=== PATIENT | female | born 1970 | race Caucasian/White ===

== ENCOUNTER → 2016-11-03 | Outpatient (CLI) | payer OTHER ==
--- NOTE | 2016-11-03 13:49 | CR ---
EXAMINATION: Two-view chest (PA and Lateral views). HISTORY: Bronchitis. FINDINGS: The trachea is midline. The cardiomediastinal silhouette is within normal limits. No pulmonary infil trates, effusions or pneumothorax. Osseous structures appear unremarkable. IMPRESSION: No acute cardiopulmonary process.
== END ==
LOC: MW.CHIM 13:14
PROVIDERS: ATTEND Internal Medicine
DX: J40 Bronchitis, not specified as acute or chronic (principal)
CPT/HCPCS: 71020; 71020-26

== ENCOUNTER → 2016-11-11 | Outpatient (CLI) | payer OTHER ==
[2016-11-11 10:12] LABS: CHLORIDE,CL 107 mmol/L (98-110); SODIUM,NA 141 mmol/L (136-146)
== END ==
LOC: MW.CHIM 09:16
PROVIDERS: ATTEND Internal Medicine
DX: E66.9 Obesity, unspecified (principal); E03.9 Hypothyroidism, unspecified
CPT/HCPCS: 36415; 80053; 80061; 84443; 85025

== ENCOUNTER → 2016-12-03 | Outpatient (CLI) | payer OTHER | LOC: MW.CHIM 13:16 | PROVIDERS: ATTEND Internal Medicine | DX: J40 Bronchitis, not specified as acute or chronic (principal) | CPT/HCPCS: 71020; 71020-26 ==

== ENCOUNTER 2018-10-28 15:35 | Observation (INO) | payer BC ==
--- NOTE | 2018-10-28 15:40 | EDM.PDOC ---
ED HPI GENERAL MEDICAL PROBLEM - General Chief Complaint: Chest Pain Stated Complaint: chest tightness Time Seen by Provider: 10/28/18 15:40 Source of Information: Reports: Patient - History of Present Illness INITIAL COMMENTS - FREE TEXT/NARRATIVE: HISTORY AND PHYSICAL: History of present illness: [Patient presents with chest pain 5 out of 10 nonradiating no diaphoresis or shortness of breath no radiation arm neck or jaw Pressure was noted to be 200 over 100s via EMS they did provide 2 nitroglycerin with resolution of pain blood pressure 150s over 80s on arrival patient is very anxious appearing on arrival is in no distress No fever nausea vomiting chills sweats no current chest pain headache dizziness or palpitation no bowel or urine symptoms ] Review of systems: As per history of present illness and below otherwise all systems reviewed and negative. Past medical history: As per history of present illness and as reviewed below otherwise noncontributory. Surgical history: As per history of present illness and as reviewed below otherwise noncontributory. Social history: No reported history of drug or alcohol abuse. Family history: As per history of present illness and as reviewed below otherwise noncontributory. Physical exam: HEENT: Atraumatic, normocephalic, pupils reactive, negative for conjunctival pallor or scleral icterus, mucous membranes moist, throat clear, neck supple, nontender, trachea midline. Lungs: Clear to auscultation, breath sounds equal bilaterally, chest nontender. Heart: S1S2, regular, negative for clicks, rubs, or JVD. Abdomen: Soft, nondistended, nontender. Negative for masses or hepatosplenomegaly. Negative for costovertebral tenderness. Pelvis: Stable nontender. Genitourinary: Deferred. Rectal: Deferred. Extremities: Atraumatic, negative for cords or calf pain. Neurovascular unremarkable. Neuro: Awake, alert, oriented. Cranial nerves II through XII unremarkable. Cerebellum unremarkable. Motor and sensory unremarkable throughout. Exam nonfocal. Diagnostics: [CBC CMP troponin lipase EKG Chest 1 view ] Therapeutics: [Normal saline Nitroglycerin 2 provided via EMS 324 mg aspirin chewable provided via EMS ] Impression: [ acute coronary syndrome ] Definitive disposition and diagnosis as appropriate pending reevaluation and review of above. Chest Pain Score (Numeric/FACES): 2 - Related Data Allergies Allergy/AdvReac Type Severity Reaction Status Date / Time Dairy Products [Cheese] Allergy Hives Verified 10/28/18 15:44 kiwi Allergy Airway Verified 10/28/18 15:44 Tightness Yeast Allergy Hives Verified 10/28/18 15:44 Home Meds: Home Meds Albuterol [Ventolin HFA] 2 puff INH QID PRN 10/28/18 [History] Levothyroxine [Synthroid] 100 mcg PO DAILY 10/28/18 [History] ED ROS GENERAL - Review of Systems Review Of Systems: See Below ED EXAM, GENERAL - Physical Exam Exam: See Below Course - Vital Signs Last Recorded V/S: Last Vital Signs Temp 97.5 F 10/28/18 15:36 Pulse 98 10/28/18 15:36 Resp 20 10/28/18 15:36 BP 158/87 H 10/28/18 15:36 Pulse Ox 99 10/28/18 15:36 - Orders/Labs/Meds Orders: Active Orders 24 hr Category Date Time Status EKG Documentation Completion [RC] STAT Care 10/28/18 15:39 Active Sodium Chloride 0.9% [Normal Saline] 1,000 ml Med 10/28/18 15:45 Active IV STAT Medication Orders Sodium Chloride (Normal Saline) 1,000 mls @ 125 mls/hr IV STAT TONYA Last Admin: 10/28/18 15:45 Dose: 125 mls/hr Labs: Laboratory Tests 10/28/18 10/28/18 10/28/18 Range/Units 15:35 15:35 15:35 WBC 7.30 (4.0-11.0) K/uL RBC 4.66 (4.30-5.90) M/uL Hgb 14.6 (12.0-16.0) g/dL Hct 42.4 (36.0-46.0) % MCV 91.0 (80.0-98.0) fL MCH 31.3 (27.0-32.0) pg MCHC 34.4 (31.0-37.0) g/dL RDW Std Deviation 40.8 (28.0-62.0) fl RDW Coeff of Odny 12 (11.0-15.0) % Plt Count 242 (150-400) K/uL MPV 8.90 (7.40-12.00) fL Neut % (Auto) 62.2 (48.0-80.0) % Lymph % (Auto) 31.8 (16.0-40.0) % [place] % (Auto) 3.6 (0.0-15.0) % Eos % (Auto) 2.1 (0.0-7.0) % Baso % (Auto) 0.3 (0.0-1.5) % Neut # (Auto) 4.6 (1.4-5.7) K/uL Lymph # (Auto) 2.3 (0.6-2.4) K/uL [place] # (Auto) 0.3 (0.0-0.8) K/uL Eos # (Auto) 0.2 (0.0-0.7) K/uL Baso # (Auto) 0.0 (0.0-0.1) K/uL Nucleated RBC % 0.0 /100WBC Nucleated RBCs # 0 K/uL INR 0.98 Sodium 141 (136-145) mmol/L Potassium 3.7 (3.5-5.1) mmol/L Chloride 105 (98-107) mmol/L Carbon Dioxide 26.6 (21.0-32.0) mmol/L BUN 18 (7.0-18.0) mg/dL Creatinine 1.1 H (0.6-1.0) mg/dL Est Cr Clr Drug Dosing 59.50 mL/min Estimated GFR (MDRD) 52.6 ml/min Glucose 174 H (74-106) mg/dL Calcium 8.9 (8.5-10.1) mg/dL Total Bilirubin 0.3 (0.2-1.0) mg/dL AST 35 (15-37) IU/L ALT 55 (14-63) IU/L Alkaline Phosphatase 55 (46-116) U/L Troponin I < 0.050 (0.000-0.056) ng/mL Total Protein 7.1 (6.4-8.2) g/dL Albumin 3.5 (3.4-5.0) g/dL Globulin 3.6 (2.6-4.0) g/dL Albumin/Globulin Ratio 1.0 (0.9-1.6) Lipase (73-393) U/L TSH 3rd Generation (0.36-3.74) uIU/mL 10/28/18 10/28/18 Range/Units 15:35 15:35 WBC (4.0-11.0) K/uL RBC (4.30-5.90) M/uL Hgb (12.0-16.0) g/dL Hct (36.0-46.0) % MCV (80.0-98.0) fL MCH (27.0-32.0) pg MCHC (31.0-37.0) g/dL RDW Std Deviation (28.0-62.0) fl RDW Coeff of Dony (11.0-15.0) % Plt Count (150-400) K/uL MPV (7.40-12.00) fL Neut % (Auto) (48.0-80.0) % Lymph % (Auto) (16.0-40.0) % [place] % (Auto) (0.0-15.0) % Eos % (Auto) (0.0-7.0) % Baso % (Auto) (0.0-1.5) % Neut # (Auto) (1.4-5.7) K/uL Lymph # (Auto) (0.6-2.4) K/uL [place] # (Auto) (0.0-0.8) K/uL Eos # (Auto) (0.0-0.7) K/uL Baso # (Auto) (0.0-0.1) K/uL Nucleated RBC % /100WBC Nucleated RBCs # K/uL INR Sodium (136-145) mmol/L Potassium (3.5-5.1) mmol/L Chloride (98-107) mmol/L Carbon Dioxide (21.0-32.0) mmol/L BUN (7.0-18.0) mg/dL Creatinine (0.6-1.0) mg/dL Est Cr Clr Drug Dosing mL/min Estimated GFR (MDRD) ml/min Glucose (74-106) mg/dL Calcium (8.5-10.1) mg/dL Total Bilirubin (0.2-1.0) mg/dL AST (15-37) IU/L ALT (14-63) IU/L Alkaline Phosphatase (46-116) U/L Troponin I (0.000-0.056) ng/mL Total Protein (6.4-8.2) g/dL Albumin (3.4-5.0) g/dL Globulin (2.6-4.0) g/dL Albumin/Globulin Ratio (0.9-1.6) Lipase 177 (73-393) U/L TSH 3rd Generation 1.11 (0.36-3.74) uIU/mL Meds: Medications Generic Name Dose Route Start Last Admin Trade Name Freq PRN Reason Stop Dose Admin Sodium Chloride 1,000 mls @ 125 mls/hr 10/28/18 15:45 10/28/18 15:45 Normal Saline IV 125 mls/hr STAT TONYA Administration Discontinued Medications Generic Name Dose Route Start Last Admin Trade Name Freq PRN Reason Stop Dose Admin Lorazepam 1 mg 10/28/18 16:16 10/28/18 16:22 Ativan IVPUSH 10/28/18 16:17 1 mg ONETIME ONE Administration Departure - Departure Time of Disposition: 17:05 Disposition: Refer to Observation Condition: Fair Clinical Impression: Acute coronary syndrome - Discharge Information Forms: ED Department Discharge - My Orders Last 24 Hours: My Active Orders 10/28/18 15:39 EKG Documentation Completion [RC] STAT 10/28/18 15:45 Sodium Chloride 0.9% [Normal Saline] 1,000 ml IV STAT - Assessment/Plan Last 24 Hours: My Active Orders 10/28/18 15:39 EKG Documentation Completion [RC] STAT 10/28/18 15:45 Sodium Chloride 0.9% [Normal Saline] 1,000 ml IV STAT
[2018-10-28] MEDS ORDERED: Sodium Chloride 0.9% 1,000 ML IV SCH (15:45)
[2018-10-28] MEDS ORDERED: LORazepam 2 MG/ML SDV IVPUSH ONE (16:16)
--- NOTE | 2018-10-28 16:17 | CR ---
EXAMINATION: Portable chest radiograph. HISTORY: Shortness of breath. FINDINGS: The trachea is midline. The cardiomediastinal silhouette is within normal limits. No pulmonary infiltrates, effusions or pneumothorax. Osseous structures appear unremarkable. IMPRESSION: No acute cardiopulmonary process.
[2018-10-28 16:35] LABS: CHLORIDE,CL 105 mmol/L (98-107); SODIUM,NA 141 mmol/L (136-145)
[2018-10-28] MEDS ORDERED: Ondansetron 4 MG Tab.DIS PO PRN (17:48)
[2018-10-28] MEDS ORDERED: Temazepam 15 MG Cap PO PRN (17:48)
[2018-10-28] MEDS ORDERED: Docusate Sodium 100 MG Cap PO PRN (17:48)
[2018-10-28] MEDS ORDERED: oxyCODONE 5 MG Tab PO PRN (17:48)
[2018-10-28] MEDS ORDERED: Acetaminophen 325 MG Tab PO PRN (17:48)
[2018-10-28] MEDS ORDERED: Enoxaparin 30 MG/0.3 ML Syringe SUBCUT SCH (18:00)
--- NOTE | 2018-10-28 18:01 | PCM.HP ---
H&P History of Present Illness - General Date of Service: 10/28/18 Admit Problem/Dx: Admission Diagnosis/Problem Admission Diagnosis/Problem Acute coronary syndrome Source of Information: Patient, Family History Limitations: Reports: No Limitations - History of Present Illness Initial Comments - Free Text/Narative: The patient is a 48-year-old lady who had presented to the emergency department on October 28, 2018 secondary to chest pain. The patient was noted to be hypertensive with blood pressure reading of 240/100 mmHg while in EMS. The patient was stabilized in the emergency department and she was admitted secondary to chest pain. The patient had described the chest pain as 5 out of 10 and nonradiating. Located in the left side of her chest. The patient had no specific aggravating or relieving factors. The patient had been in fairly good health and is only taking medication for her hypothyroidism. The patient has also denied any other associated symptoms such as diaphoresis. She had no nausea or vomiting. She was somewhat anxious in the emergency department. The patient has no other complaints at this time. Onset of Symptoms: Reports: Sudden Duration of Symptoms: Reports: Hour(s): Location: Reports: Chest Quality: Reports: Pressure, Throbbing Severity: Moderate Improves with: Reports: Rest Worsens with: Reports: None Associated Symptoms: Reports: No Other Symptoms Chest Pain Score (Numeric/FACES): 2 - Related Data Allergies/Adverse Reactions: Allergies Allergy/AdvReac Type Severity Reaction Status Date / Time Dairy Products [Cheese] Allergy Hives Verified 10/28/18 15:44 kiwi Allergy Airway Verified 10/28/18 15:44 Tightness Yeast Allergy Hives Verified 10/28/18 15:44 Home Medications: Home Meds Albuterol [Ventolin HFA] 2 puff INH QID PRN 10/28/18 [History] Levothyroxine [Synthroid] 100 mcg PO DAILY 10/28/18 [History] Past Medical History HEENT History: Reports: None Cardiovascular History: Reports: None Respiratory History: Reports: None Gastrointestinal History: Reports: None Genitourinary History: Reports: None 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 MACHINE TENDER History: Reports: Dysfunctional Uterine Bleeding Musculoskeletal History: Reports: None Neurological History: Reports: None Psychiatric History: Reports: None Endocrine/Metabolic History: Reports: Hypothyroidism Hematologic History: Reports: None Immunologic History: Reports: None Dermatologic History: Reports: None - Infectious Disease History Infectious Disease History: Reports: Chicken Pox - Past Surgical History Female Surgical History: Reports: Section, Other (See Below) Other Female Surgeries/Procedures: ablation Social & Family History - Family History Family Medical History: Noncontributory - Tobacco Use Smoking Status *Q: Never Smoker - Caffeine Use Caffeine Use: Reports: Coffee - Recreational Drug Use Recreational Drug Use: No - Living Situation & Occupation Living situation: Reports: , with Spouse Occupation: Employed H&P Review of Systems - Review of Systems: Review Of Systems: See Below General: Reports: No Symptoms HEENT: Reports: No Symptoms Pulmonary: Reports: No Symptoms Cardiovascular: Reports: Chest Pain, Palpitations Gastrointestinal: Reports: No Symptoms Genitourinary: Reports: No Symptoms Musculoskeletal: Reports: No Symptoms Skin: Reports: No Symptoms Psychiatric: Reports: Anxiety Neurological: Reports: No Symptoms Hematologic/Lymphatic: Reports: No Symptoms Immunologic: Reports: No Symptoms Exam - Exam Exam: See Below - Vital Signs Vital Signs: Last Vital Signs Temp 36.4 C 10/28/18 15:36 Pulse 106 H 10/28/18 17:29 Resp 16 10/28/18 17:29 BP 147/89 H 10/28/18 17:29 Pulse Ox 94 L 10/28/18 17:29 Weight: 104.326 kg - Exam Quality Assessment: No: Supplemental Oxygen General: Alert, Oriented, Cooperative HEENT: Conjunctiva Clear, EACs Clear, EOMI, Hearing Intact, Mucosa Moist & [place] , Pupils Equal, PERRLA Neck: Supple, Trachea Midline. No: Carotid Bruit Lungs: Clear to Auscultation, Normal Respiratory Effort Cardiovascular: Regular Rate, Regular Rhythm, Normal S1, Normal S2 GI/Abdominal Exam: Normal Bowel Sounds, Soft, Non-Tender, No Distention, Other ( Obese) (Female) Exam: Deferred Rectal (Female) Exam: Deferred Back Exam: Normal Inspection, Full Range of Motion Extremities: Normal Inspection, Non-Tender, No Pedal Edema Skin: Warm, Dry, Intact Neurological: Cranial Nerves Intact, Normal Gait Neuro Extensive - Mental Status: Alert, Oriented x3 Psychiatric: Alert, Normal Affect, Normal Mood - Patient Data Lab Results Last 24 hrs: Laboratory Results - last 24 hr 10/28/18 10/28/18 10/28/18 Range/Units 15:35 15:35 15:35 WBC 7.30 (4.0-11.0) K/uL RBC 4.66 (4.30-5.90) M/uL Hgb 14.6 (12.0-16.0) g/dL Hct 42.4 (36.0-46.0) % MCV 91.0 (80.0-98.0) fL MCH 31.3 (27.0-32.0) pg MCHC 34.4 (31.0-37.0) g/dL RDW Std Deviation 40.8 (28.0-62.0) fl RDW Coeff of Dony 12 (11.0-15.0) % Plt Count 242 (150-400) K/uL MPV 8.90 (7.40-12.00) fL Neut % (Auto) 62.2 (48.0-80.0) % Lymph % (Auto) 31.8 (16.0-40.0) % [place] % (Auto) 3.6 (0.0-15.0) % Eos % (Auto) 2.1 (0.0-7.0) % Baso % (Auto) 0.3 (0.0-1.5) % Neut # (Auto) 4.6 (1.4-5.7) K/uL Lymph # (Auto) 2.3 (0.6-2.4) K/uL [place] # (Auto) 0.3 (0.0-0.8) K/uL Eos # (Auto) 0.2 (0.0-0.7) K/uL Baso # (Auto) 0.0 (0.0-0.1) K/uL Nucleated RBC % 0.0 /100WBC Nucleated RBCs # 0 K/uL INR 0.98 Sodium 141 (136-145) mmol/L Potassium 3.7 (3.5-5.1) mmol/L Chloride 105 (98-107) mmol/L Carbon Dioxide 26.6 (21.0-32.0) mmol/L BUN 18 (7.0-18.0) mg/dL Creatinine 1.1 H (0.6-1.0) mg/dL Est Cr Clr Drug Dosing 59.50 mL/min Estimated GFR (MDRD) 52.6 ml/min Glucose 174 H (74-106) mg/dL Calcium 8.9 (8.5-10.1) mg/dL Total Bilirubin 0.3 (0.2-1.0) mg/dL AST 35 (15-37) IU/L ALT 55 (14-63) IU/L Alkaline Phosphatase 55 (46-116) U/L Troponin I < 0.050 (0.000-0.056) ng/mL Total Protein 7.1 (6.4-8.2) g/dL Albumin 3.5 (3.4-5.0) g/dL Globulin 3.6 (2.6-4.0) g/dL Albumin/Globulin Ratio 1.0 (0.9-1.6) Lipase (73-393) U/L TSH 3rd Generation (0.36-3.74) uIU/mL 10/28/18 10/28/18 Range/Units 15:35 15:35 WBC (4.0-11.0) K/uL RBC (4.30-5.90) M/uL Hgb (12.0-16.0) g/dL Hct (36.0-46.0) % MCV (80.0-98.0) fL MCH (27.0-32.0) pg MCHC (31.0-37.0) g/dL RDW Std Deviation (28.0-62.0) fl RDW Coeff of Dony (11.0-15.0) % Plt Count (150-400) K/uL MPV (7.40-12.00) fL Neut % (Auto) (48.0-80.0) % Lymph % (Auto) (16.0-40.0) % [place] % (Auto) (0.0-15.0) % Eos % (Auto) (0.0-7.0) % Baso % (Auto) (0.0-1.5) % Neut # (Auto) (1.4-5.7) K/uL Lymph # (Auto) (0.6-2.4) K/uL [place] # (Auto) (0.0-0.8) K/uL Eos # (Auto) (0.0-0.7) K/uL Baso # (Auto) (0.0-0.1) K/uL Nucleated RBC % /100WBC Nucleated RBCs # K/uL INR Sodium (136-145) mmol/L Potassium (3.5-5.1) mmol/L Chloride (98-107) mmol/L Carbon Dioxide (21.0-32.0) mmol/L BUN (7.0-18.0) mg/dL Creatinine (0.6-1.0) mg/dL Est Cr Clr Drug Dosing mL/min Estimated GFR (MDRD) ml/min Glucose (74-106) mg/dL Calcium (8.5-10.1) mg/dL Total Bilirubin (0.2-1.0) mg/dL AST (15-37) IU/L ALT (14-63) IU/L Alkaline Phosphatase (46-116) U/L Troponin I (0.000-0.056) ng/mL Total Protein (6.4-8.2) g/dL Albumin (3.4-5.0) g/dL Globulin (2.6-4.0) g/dL Albumin/Globulin Ratio (0.9-1.6) Lipase 177 (73-393) U/L TSH 3rd Generation 1.11 (0.36-3.74) uIU/mL Result Diagrams: 10/29/18 04:50 10/29/18 04:50 EKG INTERPRETATION EKG Date: 10/29/18 Rhythm: NSR [place]: Normal P-Wave: Present QRS: Normal ST-T: Normal QT: Normal Comparison: NA - No Prior EKG - Problem List (1) Atypical chest pain SNOMED Code(s): 158839799 ICD Code: R07.89 - OTHER CHEST PAIN Status: Resolved Priority: High Current Visit: Yes (2) Obesity (BMI 35.0-39.9 without comorbidity) SNOMED Code(s): 295034569, 072018325 ICD Code: E66.9 - OBESITY, UNSPECIFIED Status: Chronic Priority: High Current Visit: Yes (3) Hypothyroidism SNOMED Code(s): 24781205 ICD Code: E03.9 - HYPOTHYROIDISM, UNSPECIFIED Status: Chronic Priority: Medium Current Visit: Yes Qualifiers: Hypothyroidism type: acquired Qualified Code(s): E03.9 - Hypothyroidism, unspecified Problem List Initiated/Reviewed/Updated: Yes Orders Last 24hrs: Active Orders 24 hr Category Date Time Status Admission Status [Patient Status] [ADT] Stat ADT 10/28/18 17:06 Active Cardiac Monitoring [RC] CONTINUOUS Care 10/28/18 17:48 Active EKG Documentation Completion [RC] AM Care 10/29/18 08:00 Active EKG Documentation Completion [RC] STAT Care 10/28/18 15:39 Active Oxygen Therapy [RC] PRN Care 10/28/18 17:48 Active Up ad Latasha [RC] ASDIRECTED Care 10/28/18 17:48 Active VTE/DVT Education [RC] PER UNIT ROUTINE Care 10/28/18 17:48 Active Vital Signs [RC] Q4H Care 10/28/18 17:48 Active Heart Healthy Diet [DIET] Diet 10/28/18 Breakfast Active CBC WITH AUTO DIFF [HEME] AM Lab 10/29/18 05:11 Ordered COMPREHENSIVE METABOLIC PN,CMP [CHEM] AM Lab 10/29/18 05:11 Ordered TROPONIN I [CHEM] Q6H Lab 10/28/18 17:48 Ordered TROPONIN I [CHEM] Q6H Lab 10/28/18 23:48 Ordered Acetaminophen [Tylenol] Med 10/28/18 17:48 Active 650 mg PO Q4H PRN Albuterol [Ventolin HFA] Med 10/28/18 17:52 Active 2 puff INH QID PRN Docusate Sodium [Colace] Med 10/28/18 17:48 Active 100 mg PO BID PRN Enoxaparin [Lovenox] Med 10/28/18 18:00 Active 30 mg SUBCUT Q24H Levothyroxine [Synthroid] Med 10/29/18 09:00 Active 100 mcg PO DAILY Ondansetron [Zofran ODT] Med 10/28/18 17:48 Active 4 mg PO Q4H PRN Sodium Chloride 0.9% [Normal Saline] 1,000 ml Med 10/28/18 15:45 Active IV STAT Temazepam [Restoril] Med 10/28/18 17:48 Active 15 mg PO BEDTIME PRN oxyCODONE Med 10/28/18 17:48 Active 5 mg PO Q4H PRN Resuscitation Status Routine Resus Stat 10/28/18 17:48 Ordered Medication Orders Acetaminophen (Tylenol) 650 mg PO Q4H PRN PRN Reason: Pain (Mild 1-3)/fever Docusate Sodium (Colace) 100 mg PO BID PRN PRN Reason: Constipation Enoxaparin Sodium (Lovenox) 30 mg SUBCUT Q24H TONYA Sodium Chloride (Normal Saline) 1,000 mls @ 125 mls/hr IV STAT TONYA Last Admin: 10/28/18 15:45 Dose: 125 mls/hr Levothyroxine Sodium (Synthroid) 100 mcg PO DAILY TONYA Non-Formulary Medication (Albuterol [Ventolin Hfa]) 2 puff INH QID PRN PRN Reason: Shortness of Breath Ondansetron HCl (Zofran Odt) 4 mg PO Q4H PRN PRN Reason: nausea, able to take PO Oxycodone HCl (Oxycodone) 5 mg PO Q4H PRN PRN Reason: Pain (moderate 4-6) Temazepam (Restoril) 15 mg PO BEDTIME PRN PRN Reason: Sleep Assessment/Plan Comment:: The patient is an otherwise healthy 48-year-old lady who would be admitted to observation hospitalization. Ordered 3 sets of troponins. She'll be kept on telemetry. This is done to rule out ACS. The patient will also be kept on a heart healthy diet. She has been anticoagulated with Lovenox. The patient has been encouraged to ambulate. The patient's initial testing have ruled out ACS and I will consider ordering outpatient stress test. The patient is obese with a BMI of 36 and she should follow-up with her primary care physician with regards to weight reduction strategies. The patient will also be kept on her home dose of Synthroid due to her hypothyroidism. The patient also has been encouraged to ambulate. I anticipate discharge tomorrow.
[2018-10-29 05:56] LABS: CHLORIDE,CL 110 mmol/L (98-107); SODIUM,NA 146 mmol/L (136-145)
--- NOTE | 2018-10-29 08:28 | PCM.DCSUM1 ---
Discharge Summary - Hospital Course HPI Initial Comments: The patient was admitted secondary to chest pain for ACS workup. She was also noted to be in hypertensive urgency by EMS. Diagnosis: Stroke: No - Discharge Data Discharge Date: 10/29/18 Discharge Disposition: Home, Self-Care 01 Condition: Good - Patient Summary/Data Hospital Course: The patient is a 48-year-old lady who had presented to the emergency department on October 28, 2018 secondary to chest pain. The patient was noted to be hypertensive with blood pressure reading of 240/100 mmHg while in EMS. The patient was stabilized in the emergency department and she was admitted secondary to chest pain. The patient had described the chest pain as 5 out of 10 and nonradiating. Located in the left side of her chest. The patient then was kept on appropriate cardiac diet. She continued to improve over the short course of hospitalization. The patient's overall mood improved somewhat from anxiety to normal. Her blood pressure improved by itself. She still remains somewhat anxious and her blood pressure was minimally elevated upon discharge. The patient has been recommended because of her risk factors to follow-up with outpatient stress test in order to exclude coronary artery disease. The patient did have 3 troponins which were undetectable. EKG was interpreted as normal and unchanged from her EKG on admission. The patient also has been recommended to follow-up with her primary care physician. The patient has been tolerating her diet and is also recommended to continue with her activity as tolerated. Further , the patient has been instructed to follow up with primary care physician with regards to weight loss strategies for her obesity. She has been hemodynamically stable and she has been discharged from acute hospitalization with the recommendations listed above. - Patient Instructions Diet: Heart Healthy Diet Activity: As Tolerated Driving: May Drive Today - Discharge Plan *PRESCRIPTION DRUG MONITORING PROGRAM REVIEWED*: No *COPY OF PRESCRIPTION DRUG MONITORING REPORT IN PATIENT DANIELLE: No Home Medications: Home Meds Albuterol [Ventolin HFA] 2 puff INH QID PRN 10/28/18 [History] Levothyroxine [Synthroid] 100 mcg PO DAILY 10/28/18 [History] Other Amb Orders: ECG Stress Exercise [OM.PC] Location: None Selected Oxygen Therapy Mode: Room Air Patient Handouts: Exercise Stress Echocardiogram, [id number], Nonspecific Chest Pain, [id number] Referrals: Ector Galarza MD [Resident] - 11/04/18 2:00 pm - Discharge Summary/Plan Comment DC Time >30 min.: Yes - General Info Date of Service: 10/29/18 Admission Dx/Problem (Free Text: Admission Diagnosis/Problem Admission Diagnosis/Problem atypical chest pain Functional Status: Reports: Pain Controlled - Review of Systems General: Reports: No Symptoms HEENT: Reports: No Symptoms Pulmonary: Reports: No Symptoms Cardiovascular: Reports: No Symptoms Gastrointestinal: Reports: No Symptoms Genitourinary: Reports: No Symptoms Musculoskeletal: Reports: No Symptoms Skin: Reports: No Symptoms Neurological: Reports: No Symptoms Psychiatric: Reports: No Symptoms - Patient Data Vitals - Most Recent: Last Vital Signs Temp 36.2 C 10/29/18 08:00 Pulse 88 10/29/18 08:00 Resp 17 10/29/18 08:00 BP 154/94 H 10/29/18 08:00 Pulse Ox 96 10/29/18 08:00 Weight - Most Recent: 107.774 kg I&O - Last 24 hours: Intake & Output 10/28/18 10/29/18 10/29/18 22:59 06:59 14:59 Intake Total 250 Output Total 500 Balance -250 Lab Results - Last 24 hrs: Laboratory Results - last 24 hr 10/28/18 10/28/18 10/28/18 Range/Units 15:35 15:35 15:35 WBC 7.30 (4.0-11.0) K/uL RBC 4.66 (4.30-5.90) M/uL Hgb 14.6 (12.0-16.0) g/dL Hct 42.4 (36.0-46.0) % MCV 91.0 (80.0-98.0) fL MCH 31.3 (27.0-32.0) pg MCHC 34.4 (31.0-37.0) g/dL RDW Std Deviation 40.8 (28.0-62.0) fl RDW Coeff of Dony 12 (11.0-15.0) % Plt Count 242 (150-400) K/uL MPV 8.90 (7.40-12.00) fL Neut % (Auto) 62.2 (48.0-80.0) % Lymph % (Auto) 31.8 (16.0-40.0) % [place] % (Auto) 3.6 (0.0-15.0) % Eos % (Auto) 2.1 (0.0-7.0) % Baso % (Auto) 0.3 (0.0-1.5) % Neut # (Auto) 4.6 (1.4-5.7) K/uL Lymph # (Auto) 2.3 (0.6-2.4) K/uL [place] # (Auto) 0.3 (0.0-0.8) K/uL Eos # (Auto) 0.2 (0.0-0.7) K/uL Baso # (Auto) 0.0 (0.0-0.1) K/uL Nucleated RBC % 0.0 /100WBC Nucleated RBCs # 0 K/uL INR 0.98 Sodium 141 (136-145) mmol/L Potassium 3.7 (3.5-5.1) mmol/L Chloride 105 (98-107) mmol/L Carbon Dioxide 26.6 (21.0-32.0) mmol/L BUN 18 (7.0-18.0) mg/dL Creatinine 1.1 H (0.6-1.0) mg/dL Est Cr Clr Drug Dosing 59.50 mL/min Estimated GFR (MDRD) 52.6 ml/min Glucose 174 H (74-106) mg/dL Calcium 8.9 (8.5-10.1) mg/dL Total Bilirubin 0.3 (0.2-1.0) mg/dL AST 35 (15-37) IU/L ALT 55 (14-63) IU/L Alkaline Phosphatase 55 (46-116) U/L Troponin I < 0.050 (0.000-0.056) ng/mL Total Protein 7.1 (6.4-8.2) g/dL Albumin 3.5 (3.4-5.0) g/dL Globulin 3.6 (2.6-4.0) g/dL Albumin/Globulin Ratio 1.0 (0.9-1.6) Lipase (73-393) U/L TSH 3rd Generation (0.36-3.74) uIU/mL 10/28/18 10/28/18 10/28/18 Range/Units 15:35 15:35 18:08 WBC (4.0-11.0) K/uL RBC (4.30-5.90) M/uL Hgb (12.0-16.0) g/dL Hct (36.0-46.0) % MCV (80.0-98.0) fL MCH (27.0-32.0) pg MCHC (31.0-37.0) g/dL RDW Std Deviation (28.0-62.0) fl RDW Coeff of Dony (11.0-15.0) % Plt Count (150-400) K/uL MPV (7.40-12.00) fL Neut % (Auto) (48.0-80.0) % Lymph % (Auto) (16.0-40.0) % [place] % (Auto) (0.0-15.0) % Eos % (Auto) (0.0-7.0) % Baso % (Auto) (0.0-1.5) % Neut # (Auto) (1.4-5.7) K/uL Lymph # (Auto) (0.6-2.4) K/uL [place] # (Auto) (0.0-0.8) K/uL Eos # (Auto) (0.0-0.7) K/uL Baso # (Auto) (0.0-0.1) K/uL Nucleated RBC % /100WBC Nucleated RBCs # K/uL INR Sodium (136-145) mmol/L Potassium (3.5-5.1) mmol/L Chloride (98-107) mmol/L Carbon Dioxide (21.0-32.0) mmol/L BUN (7.0-18.0) mg/dL Creatinine (0.6-1.0) mg/dL Est Cr Clr Drug Dosing mL/min Estimated GFR (MDRD) ml/min Glucose (74-106) mg/dL Calcium (8.5-10.1) mg/dL Total Bilirubin (0.2-1.0) mg/dL AST (15-37) IU/L ALT (14-63) IU/L Alkaline Phosphatase (46-116) U/L Troponin I 0.053 (0.000-0.056) ng/mL Total Protein (6.4-8.2) g/dL Albumin (3.4-5.0) g/dL Globulin (2.6-4.0) g/dL Albumin/Globulin Ratio (0.9-1.6) Lipase 177 (73-393) U/L TSH 3rd Generation 1.11 (0.36-3.74) uIU/mL 10/28/18 10/29/18 10/29/18 Range/Units 23:49 04:50 04:50 WBC 7.29 (4.0-11.0) K/uL RBC 4.54 (4.30-5.90) M/uL Hgb 14.1 (12.0-16.0) g/dL Hct 41.6 (36.0-46.0) % MCV 91.6 (80.0-98.0) fL MCH 31.1 (27.0-32.0) pg MCHC 33.9 (31.0-37.0) g/dL RDW Std Deviation 41.4 (28.0-62.0) fl RDW Coeff of Dony 12 (11.0-15.0) % Plt Count 241 (150-400) K/uL MPV 9.20 (7.40-12.00) fL Neut % (Auto) 57.5 (48.0-80.0) % Lymph % (Auto) 35.1 (16.0-40.0) % [place] % (Auto) 4.7 (0.0-15.0) % Eos % (Auto) 2.6 (0.0-7.0) % Baso % (Auto) 0.1 (0.0-1.5) % Neut # (Auto) 4.2 (1.4-5.7) K/uL Lymph # (Auto) 2.6 H (0.6-2.4) K/uL [place] # (Auto) 0.3 (0.0-0.8) K/uL Eos # (Auto) 0.2 (0.0-0.7) K/uL Baso # (Auto) 0.0 (0.0-0.1) K/uL Nucleated RBC % 0.0 /100WBC Nucleated RBCs # 0 K/uL INR Sodium 146 H (136-145) mmol/L Potassium 3.8 (3.5-5.1) mmol/L Chloride 110 H (98-107) mmol/L Carbon Dioxide 27.7 (21.0-32.0) mmol/L BUN 15 (7.0-18.0) mg/dL Creatinine 0.9 (0.6-1.0) mg/dL Est Cr Clr Drug Dosing 72.72 mL/min Estimated GFR (MDRD) > 60.0 ml/min Glucose 89 (74-106) mg/dL Calcium 8.5 (8.5-10.1) mg/dL Total Bilirubin 0.5 (0.2-1.0) mg/dL AST 21 (15-37) IU/L ALT 44 (14-63) IU/L Alkaline Phosphatase 47 (46-116) U/L Troponin I 0.052 (0.000-0.056) ng/mL Total Protein 6.5 (6.4-8.2) g/dL Albumin 3.0 L (3.4-5.0) g/dL Globulin 3.5 (2.6-4.0) g/dL Albumin/Globulin Ratio 0.9 (0.9-1.6) Lipase (73-393) U/L TSH 3rd Generation (0.36-3.74) uIU/mL Med Orders - Current: Current Medications Acetaminophen (Tylenol) 650 mg PO Q4H PRN PRN Reason: Pain (Mild 1-3)/fever Docusate Sodium (Colace) 100 mg PO BID PRN PRN Reason: Constipation Enoxaparin Sodium (Lovenox) 30 mg SUBCUT Q24H [facility] Last Admin: 10/28/18 19:08 Dose: 30 mg Levothyroxine Sodium (Synthroid) 100 mcg PO DAILY [facility] Non-Formulary Medication (Albuterol [Ventolin Hfa]) 2 puff INH QID PRN PRN Reason: Shortness of Breath Ondansetron HCl (Zofran Odt) 4 mg PO Q4H PRN PRN Reason: nausea, able to take PO Oxycodone HCl (Oxycodone) 5 mg PO Q4H PRN PRN Reason: Pain (moderate 4-6) Temazepam (Restoril) 15 mg PO BEDTIME PRN PRN Reason: Sleep Discontinued Medications Sodium Chloride (Normal Saline) 1,000 mls @ 125 mls/hr IV STAT [facility] Last Admin: 04/11/19 15:45 Dose: 125 mls/hr Lorazepam (Ativan) 1 mg IVPUSH ONETIME ONE Stop: 10/28/18 16:17 Last Admin: 10/28/18 16:22 Dose: 1 mg - Exam Quality Assessment: Denies: Supplemental Oxygen General: Reports: Alert, Oriented, Cooperative, No Acute Distress HEENT: Reports: Pupils Equal, Pupils Reactive, EOMI, Mucous Membr. Moist/[place] Neck: Reports: Supple, Trachea Midline Lungs: Reports: Clear to Auscultation, Normal Respiratory Effort Cardiovascular: Reports: Regular Rate, Regular Rhythm GI/Abdominal Exam: Normal Bowel Sounds, Soft, Non-Tender, No Distention (Female) Exam: Deferred Rectal (Female) Exam: Deferred Back Exam: Reports: Normal Inspection, Full Range of Motion Extremities: Normal Inspection, Normal Range of Motion, Non-Tender, No Pedal Edema Skin: Reports: Warm, Dry, Intact Neurological: Reports: No New Focal Deficit Psy/Mental Status: Reports: Alert, Normal Affect, Normal Mood EKG INTERPRETATION EKG Date: 10/29/18 Rhythm: NSR [place]: Normal P-Wave: Present QRS: Normal ST-T: Normal QT: Normal Comparison: No Change
[2018-10-29] MEDS ORDERED: Levothyroxine 100 MCG Tab PO SCH (09:00)
== END 2018-10-29 11:20 | disposition home or self-care (01) ==
LOC: MW.ED 15:35 → MW.MS 17:53
PROVIDERS: ADMIT Internal Medicine; ATTEND Internal Medicine
DX: R07.89 Other chest pain (principal); I16.0 Hypertensive urgency; E03.9 Hypothyroidism, unspecified; E66.9 Obesity, unspecified; Z68.37 Body mass index [BMI] 37.0-37.9, adult; Z91.018 Allergy to other foods; Z79.899 Other long term (current) drug therapy
CPT/HCPCS: 36415; 71045; 80053; 83690; 84443; 84484; 85025; 85610; 93005; 96361; 96372; 96374; 99285; A9270; G0378; J1650; J2060; J7040; 99283

== ENCOUNTER 2018-11-02 12:01 | Emergency (ER) | payer BC ==
--- NOTE | 2018-11-02 12:08 | EDM.PDOC ---
ED HPI GENERAL MEDICAL PROBLEM - General Chief Complaint: Chest Pain Stated Complaint: BACK AND CHEST PAIN Time Seen by Provider: 11/02/18 12:08 Source of Information: Reports: Patient - History of Present Illness INITIAL COMMENTS - FREE TEXT/NARRATIVE: HISTORY AND PHYSICAL: History of present illness: [Patient presents with epigastric pain, she was seen one week ago with admission , she presents very anxious and hyperventilating, she states she felt a " pop" in her chest, which made her very anxious and her blood pressure has increased which is prompted her to present She describes 4 out of 10 pain in the epigastrium mentioned pain radiating to the back nursing staff but denies this to me at this time, She fears she may have a blood clot Review of systems: As per history of present illness and below otherwise all systems reviewed and negative. Past medical history: As per history of present illness and as reviewed below otherwise noncontributory. Surgical history: As per history of present illness and as reviewed below otherwise noncontributory. Social history: No reported history of drug or alcohol abuse. Family history: As per history of present illness and as reviewed below otherwise noncontributory. Physical exam: HEENT: Atraumatic, normocephalic, pupils reactive, negative for conjunctival pallor or scleral icterus, mucous membranes moist, throat clear, neck supple, nontender, trachea midline. Lungs: Clear to auscultation, breath sounds equal bilaterally, chest nontender. Heart: S1S2, regular, negative for clicks, rubs, or JVD. Abdomen: Soft, nondistended, nontender. Negative for masses or hepatosplenomegaly. Negative for costovertebral tenderness. Pelvis: Stable nontender. Genitourinary: Deferred. Rectal: Deferred. Extremities: Atraumatic, negative for cords or calf pain. Neurovascular unremarkable. Neuro: Awake, alert, oriented. Cranial nerves II through XII unremarkable. Cerebellum unremarkable. Motor and sensory unremarkable throughout. Exam nonfocal. Diagnostics: [CBC CMP UA troponin lipase EKG Chest 1 view] Therapeutics: Patient took aspirin one hour prior to arrival Ativan 1 mg IV []Signed out to follow remaining lab and CT chest rule out PE Impression: Positive d-dimer Anxiety/panic epiGastric pain] Definitive disposition and diagnosis as appropriate pending reevaluation and review of above. epigastric Pain Score (Numeric/FACES): 8 - Related Data Allergies Allergy/AdvReac Type Severity Reaction Status Date / Time Dairy Products [Cheese] Allergy Hives Verified 11/02/18 12:05 kiwi Allergy Airway Verified 11/02/18 12:05 Tightness Yeast Allergy Hives Verified 11/02/18 12:05 Home Meds: Home Meds Albuterol [Ventolin HFA] 2 puff INH QID PRN 10/28/18 [History] Levothyroxine [Synthroid] 100 mcg PO DAILY 10/28/18 [History] Past Medical History HEENT History: Reports: None Cardiovascular History: Reports: None Respiratory History: Reports: None Gastrointestinal History: Reports: None Genitourinary History: Reports: None 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: Dysfunctional Uterine Bleeding Musculoskeletal History: Reports: None Neurological History: Reports: None Psychiatric History: Reports: None Endocrine/Metabolic History: Reports: Hypothyroidism Hematologic History: Reports: None Immunologic History: Reports: None Dermatologic History: Reports: None - Infectious Disease History Infectious Disease History: Reports: Chicken Pox - Past Surgical History Female Surgical History: Reports: Section, Other (See Below) Other Female Surgeries/Procedures: ablation Social & Family History - Family History Family Medical History: Noncontributory - Caffeine Use Caffeine Use: Reports: Coffee - Living Situation & Occupation Living situation: Reports: , with Spouse Occupation: Employed ED ROS GENERAL - Review of Systems Review Of Systems: See Below ED EXAM, GENERAL - Physical Exam Exam: See Below Course - Vital Signs Last Recorded V/S: Last Vital Signs Temp 97.3 F 11/02/18 12:06 Pulse 95 11/02/18 12:06 Resp 20 11/02/18 12:06 BP 198/103 H 11/02/18 12:06 Pulse Ox 99 11/02/18 12:06 - Orders/Labs/Meds Orders: Active Orders 24 hr Category Date Time Status EKG Documentation Completion [RC] STAT Care 11/02/18 12:07 Active CTA Chest W WO Contrast [Ang Chest] [CT] Stat Exams 11/02/18 12:39 Ordered Nitroglycerin [Nitrostat] Med 11/02/18 12:12 Active 0.4 mg SL Q5M PRN Medication Orders Nitroglycerin (Nitrostat) 0.4 mg SL Q5M PRN PRN Reason: Chest Pain Labs: Laboratory Tests 11/02/18 11/02/18 11/02/18 Range/Units 12:10 12:10 12:15 WBC 9.20 (4.0-11.0) K/uL RBC 5.17 (4.30-5.90) M/uL Hgb 16.5 H (12.0-16.0) g/dL Hct 46.9 H (36.0-46.0) % MCV 90.7 (80.0-98.0) fL MCH 31.9 (27.0-32.0) pg MCHC 35.2 (31.0-37.0) g/dL RDW Std Deviation 40.2 (28.0-62.0) fl RDW Coeff of Dony 12 (11.0-15.0) % Plt Count 253 (150-400) K/uL MPV 9.00 (7.40-12.00) fL Neut % (Auto) 61.4 (48.0-80.0) % Lymph % (Auto) 30.9 (16.0-40.0) % [place] % (Auto) 5.5 (0.0-15.0) % Eos % (Auto) 2.1 (0.0-7.0) % Baso % (Auto) 0.1 (0.0-1.5) % Neut # (Auto) 5.7 (1.4-5.7) K/uL Lymph # (Auto) 2.8 H (0.6-2.4) K/uL [place] # (Auto) 0.5 (0.0-0.8) K/uL Eos # (Auto) 0.2 (0.0-0.7) K/uL Baso # (Auto) 0.0 (0.0-0.1) K/uL Nucleated RBC % 0.0 /100WBC Nucleated RBCs # 0 K/uL D-Dimer, Quantitative 0.51 H (0.0-0.50) mg/L FEU Sodium 140 (136-145) mmol/L Potassium 3.7 (3.5-5.1) mmol/L Chloride 104 (98-107) mmol/L Carbon Dioxide 28.0 (21.0-32.0) mmol/L BUN 17 (7.0-18.0) mg/dL Creatinine 1.0 (0.6-1.0) mg/dL Est Cr Clr Drug Dosing 65.45 mL/min Estimated GFR (MDRD) 58.7 ml/min Glucose 144 H (74-106) mg/dL Calcium 9.5 (8.5-10.1) mg/dL Total Bilirubin 0.4 (0.2-1.0) mg/dL AST 25 (15-37) IU/L ALT 43 (14-63) IU/L Alkaline Phosphatase 57 (46-116) U/L Troponin I < 0.050 (0.000-0.056) ng/mL Total Protein 8.1 (6.4-8.2) g/dL Albumin 3.9 (3.4-5.0) g/dL Globulin 4.2 H (2.6-4.0) g/dL Albumin/Globulin Ratio 0.9 (0.9-1.6) Lipase 150 (73-393) U/L Urine Color Urine Appearance Urine pH (5.0-8.0) Ur Specific [place] (1.001-1.035) Urine Protein (NEGATIVE) mg/dL Urine Glucose (UA) (NEGATIVE) mg/dL Urine Ketones (NEGATIVE) mg/dL Urine Occult Blood (NEGATIVE) Urine Nitrite (NEGATIVE) Urine Bilirubin (NEGATIVE) Urine Urobilinogen (<2.0) EU/dL Ur Leukocyte Esterase (NEGATIVE) 11/02/18 Range/Units 12:47 WBC (4.0-11.0) K/uL RBC (4.30-5.90) M/uL Hgb (12.0-16.0) g/dL Hct (36.0-46.0) % MCV (80.0-98.0) fL MCH (27.0-32.0) pg MCHC (31.0-37.0) g/dL RDW Std Deviation (28.0-62.0) fl RDW Coeff of Dony (11.0-15.0) % Plt Count (150-400) K/uL MPV (7.40-12.00) fL Neut % (Auto) (48.0-80.0) % Lymph % (Auto) (16.0-40.0) % [place] % (Auto) (0.0-15.0) % Eos % (Auto) (0.0-7.0) % Baso % (Auto) (0.0-1.5) % Neut # (Auto) (1.4-5.7) K/uL Lymph # (Auto) (0.6-2.4) K/uL [place] # (Auto) (0.0-0.8) K/uL Eos # (Auto) (0.0-0.7) K/uL Baso # (Auto) (0.0-0.1) K/uL Nucleated RBC % /100WBC Nucleated RBCs # K/uL D-Dimer, Quantitative (0.0-0.50) mg/L FEU Sodium (136-145) mmol/L Potassium (3.5-5.1) mmol/L Chloride (98-107) mmol/L Carbon Dioxide (21.0-32.0) mmol/L BUN (7.0-18.0) mg/dL Creatinine (0.6-1.0) mg/dL Est Cr Clr Drug Dosing mL/min Estimated GFR (MDRD) ml/min Glucose (74-106) mg/dL Calcium (8.5-10.1) mg/dL Total Bilirubin (0.2-1.0) mg/dL AST (15-37) IU/L ALT (14-63) IU/L Alkaline Phosphatase (46-116) U/L Troponin I (0.000-0.056) ng/mL Total Protein (6.4-8.2) g/dL Albumin (3.4-5.0) g/dL Globulin (2.6-4.0) g/dL Albumin/Globulin Ratio (0.9-1.6) Lipase (73-393) U/L Urine Color YELLOW Urine Appearance CLEAR Urine pH 7.0 (5.0-8.0) Ur Specific [place] <= 1.005 (1.001-1.035) Urine Protein NEGATIVE (NEGATIVE) mg/dL Urine Glucose (UA) NEGATIVE (NEGATIVE) mg/dL Urine Ketones NEGATIVE (NEGATIVE) mg/dL Urine Occult Blood NEGATIVE (NEGATIVE) Urine Nitrite NEGATIVE (NEGATIVE) Urine Bilirubin NEGATIVE (NEGATIVE) Urine Urobilinogen 0.2 (<2.0) EU/dL Ur Leukocyte Esterase NEGATIVE (NEGATIVE) Meds: Medications Generic Name Dose Route Start Last Admin Trade Name Freq PRN Reason Stop Dose Admin Nitroglycerin 0.4 mg 11/02/18 12:12 Nitrostat SL Q5M PRN Chest Pain Discontinued Medications Generic Name Dose Route Start Last Admin Trade Name Dylan PRN Reason Stop Dose Admin Aspirin 324 mg 11/02/18 12:12 11/02/18 12:19 Aspirin PO 11/02/18 12:13 Not Given ONETIME ONE Sodium Chloride 1,000 mls @ 999 mls/hr 11/02/18 12:06 11/02/18 12:33 Normal Saline IV 11/02/18 13:06 999 mls/hr STAT ONE Administration Sodium Chloride Confirm 11/02/18 12:26 11/02/18 12:39 Normal Saline Administered 11/02/18 12:27 1 mls/hr Dose Administration 20 mls @ as directed .ROUTE .STK-MED ONE Lorazepam 1 mg 11/02/18 12:18 11/02/18 12:35 Ativan IVPUSH 11/02/18 12:19 1 mg ONETIME ONE Administration Morphine Sulfate 2 mg 11/02/18 12:12 11/02/18 12:19 Morphine IVPUSH 11/02/18 12:13 Not Given ONETIME ONE Pantoprazole Sodium 80 mg 11/02/18 12:18 11/02/18 12:39 Protonix Iv IVPUSH 11/02/18 12:19 80 mg .BOLUS ONE Administration Departure - Departure Time of Disposition: 13:29 Disposition: Still A Patient 30 Condition: Fair Clinical Impression: Positive D dimer, Anxiety about health - Discharge Information Referrals: PCP,None [Primary Care Provider] - Forms: ED Department Discharge - My Orders Last 24 Hours: My Active Orders 11/02/18 12:07 EKG Documentation Completion [RC] STAT 11/02/18 12:12 Nitroglycerin [Nitrostat] 0.4 mg SL Q5M PRN 11/02/18 12:39 CTA Chest W WO Contrast [Ang Chest] [CT] Stat - Assessment/Plan Last 24 Hours: My Active Orders 11/02/18 12:07 EKG Documentation Completion [RC] STAT 11/02/18 12:12 Nitroglycerin [Nitrostat] 0.4 mg SL Q5M PRN 11/02/18 12:39 CTA Chest W WO Contrast [Ang Chest] [CT] Stat
[2018-11-02] MEDS ORDERED: Nitroglycerin 0.4 MG Tab.SL SL PRN (12:12)
[2018-11-02] MEDS: Aspirin 81 MG Tab.Chew PO ONE (12:19)
[2018-11-02] MEDS: Morphine 2 MG/ML Syringe IVPUSH ONE (12:19)
[2018-11-02] MEDS: Sodium Chloride 0.9% 1,000 ML IV ONE (12:33)
[2018-11-02] MEDS: LORazepam 2 MG/ML SDV IVPUSH ONE (12:35)
[2018-11-02] MEDS: Sodium Chloride 0.9% 20 ML ONE (12:39)
[2018-11-02] MEDS: Pantoprazole 40 MG Vial IVPUSH ONE (12:39)
[2018-11-02 13:12] LABS: CHLORIDE,CL 104 mmol/L (98-107); SODIUM,NA 140 mmol/L (136-145)
[2018-11-02] MEDS: Iopamidol 755 MG/ML 500 ML Multipack Bottle IVPUSH STA (14:11)
--- NOTE | 2018-11-02 14:32 | CT ---
EXAMINATION: CTA chest HISTORY: Positive d-dimer COMPARISON: Radiographs from the same day TECHNIQUE: Axial CT imaging obtained through the chest following the administration of 50 mL of Isovue-370 the right antecubital fossa. Coronal and sagittal reconstructions obtained. FINDINGS: The lungs are clear without focal consolidation. No pleural effusion or pneumothorax. The heart is normal in size without a pericardial effusion. No mediastinal, hilar, or axillary lymphadenopathy. Central airways are clear. The thoracic aorta is normal in caliber. The main and central pulmonary arteries are patent. Cholelithiasis without evidence cholecystitis. No suspicious osseous abnormalities identified. IMPRESSION: 1. No acute cardiopulmonary findings. 2. Cholelithiasis without evidence of cholecystitis.
== END 2018-11-02 15:03 | disposition still patient (30) ==
LOC: MW.ED 12:01
DX: R79.1 Abnormal coagulation profile (principal); E03.9 Hypothyroidism, unspecified; F41.9 Anxiety disorder, unspecified; R10.13 Epigastric pain; Z91.018 Allergy to other foods; Z79.899 Other long term (current) drug therapy
CPT/HCPCS: 36415; 71045; 71275; 80053; 81003; 83690; 84484; 85025; 85379; 93005; 96361; 96374; 96375; 99284; C9113; J2060; J7040; Q9967

== ENCOUNTER 2021-07-20 14:45 | Emergency (ER) | payer BC ==
[2021-07-20] MEDS ORDERED: Sodium Chloride 0.9% 10 ML Syringe FLUSH PRN (15:08)
[2021-07-20] MEDS ORDERED: Sodium Chloride 0.9% 2.5 ML Syringe FLUSH PRN (15:08)
[2021-07-20] MEDS ORDERED: Sodium Chloride 0.9% 1,000 ML IV ONE (15:08)
[2021-07-20] MEDS ORDERED: Ondansetron 4 MG/2 ML SDV IVPUSH ONE (15:08)
[2021-07-20] MEDS ORDERED: Ketorolac 30 MG/ML SDV IVPUSH ONE (15:08)
--- NOTE | 2021-07-20 15:09 | EDM.PDOC ---
ED HPI GENERAL MEDICAL PROBLEM - General Chief Complaint: Respiratory Problem Stated Complaint: COVID POSITIVE,SOB Time Seen by Provider: 07/20/21 14:48 - Related Data Allergies Allergy/AdvReac Type Severity Reaction Status Date / Time Dairy Products [Cheese] Allergy Hives Verified 07/20/21 14:49 kiwi Allergy Airway Verified 07/20/21 14:49 Tightness Yeast Allergy Hives Verified 07/20/21 14:49 Home Meds: Home Meds Albuterol [Ventolin HFA] 2 puff INH QID PRN 10/28/18 [History] Levothyroxine [Synthroid] 100 mcg PO DAILY 10/28/18 [History] Sertraline [Zoloft] 75 mg PO DAILY 07/20/21 [History] Past Medical History HEENT History: Reports: None Cardiovascular History: Reports: Hypertension Respiratory History: Reports: None Gastrointestinal History: Reports: None Genitourinary History: Reports: None 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: Dysfunctional 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 Bleeding Musculoskeletal History: Reports: None Neurological History: Reports: None Psychiatric History: Reports: Anxiety Endocrine/Metabolic History: Reports: Hypothyroidism Hematologic History: Reports: None Immunologic History: Reports: None Oncologic (Cancer) History: Reports: None Dermatologic History: Reports: None - Infectious Disease History Infectious Disease History: Reports: Chicken Pox - Past Surgical History Head Surgeries/Procedures: Reports: None HEENT Surgical History: Reports: None Cardiovascular Surgical History: Reports: None Respiratory Surgical History: Reports: None GI Surgical History: Reports: None Female Surgical History: Reports: Section, Other (See Below) Other Female Surgeries/Procedures: ablation Endocrine Surgical History: Reports: None Neurological Surgical History: Reports: None Musculoskeletal Surgical History: Reports: None Oncologic Surgical History: Reports: None Dermatological Surgical History: Reports: None Social & Family History - Family History Family Medical History: No Pertinent Family History - Caffeine Use Caffeine Use: Reports: Coffee - Recreational Drug Use Recreational Drug Use: No - Living Situation & Occupation Living situation: Reports: , with Spouse Occupation: Employed Course - Vital Signs Last Recorded V/S: Last Vital Signs Temp 36.1 C 07/20/21 14:50 Pulse 104 H 07/20/21 14:50 Resp 20 07/20/21 14:50 BP 167/107 H 07/20/21 14:50 Pulse Ox 94 L 07/20/21 14:50 Departure - Discharge Information Referrals: PCP,None [Primary Care Provider] - Sepsis Event Note (ED) - Evaluation Sepsis Screening Result: No Definite Risk - Focused Exam Vital Signs: Vital Signs Temp Pulse Resp BP Pulse Ox 07/20/21 14:50 36.1 C 104 H 20 167/107 H 94 L
--- NOTE | 2021-07-20 15:11 | PCM.EKG ---
#1 Interpretation EKG Interpretation Comments: EKG done 07/20/2021 at 2:55 PM shows a sinus tachycardia with heart rate of 101. AR interval is 126 and QT durations 433. The axis is 61. The QRS shows an RSR prime in V1 and V2. This compared to 11/02/2018 there is no significant change. Impression there is no acute ischemia or injury
--- NOTE | 2021-07-20 15:19 | EDM.PDOC ---
ED HPI GENERAL MEDICAL PROBLEM - General Chief Complaint: Respiratory Problem Stated Complaint: COVID POSITIVE,SOB Time Seen by Provider: 07/20/21 14:48 Source of Information: Reports: Patient History Limitations: Reports: No Limitations - History of Present Illness INITIAL COMMENTS - FREE TEXT/NARRATIVE: HISTORY AND PHYSICAL: History of present illness: The patient is a 1-year-old female who presents to the emergency department with complaints of shortness of breath and cough that started 07/11/21. The patient states that her had previously been diagnosed with Covid before that. The patient states that she had a headache for the first 3 days and then started feel better and then started to feel worse having trouble breathing. She has not been eating but has been drinking. The patient states she has nausea but feels like she has it under control at home. Patient is exhausted. Patient states that she has general body aches. 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 Patient denies any fever, chills, change in vision, syncope or near syncope. Denies any chest pain. Denies any abdominal pain, vomiting, diarrhea, constipation or dysuria. Has not noted any blood in urine or stool. Review of systems: As per history of present illness and below otherwise all systems reviewed and negative. Past medical history: As per history of present illness and as reviewed below otherwise noncontributory. Surgical history: As per history of present illness and as reviewed below otherwise noncontributory. Social history: See social history for further information Family history: As per history of present illness and as reviewed below otherwise noncontributory. Physical exam: General: Well developed and well nourished. Alert and orientated x 3. Nontoxic in appearance and in no acute distress. Vital signs are stable and have been reviewed by me. Nursing notes were reviewed. HEENT: Atraumatic, normocephalic, pupils equal and reactive bilaterally, negative for conjunctival pallor or scleral icterus, mucous membranes moist, TMs normal bilaterally, throat clear, neck supple, nontender, trachea midline. No drooling or trismus noted. No meningeal signs. No hot potato voice noted. Lungs: Clear to auscultation bilaterally. No wheezes, rales, or rhonchi. Chest nontender. Normal work of breathing, no accessory muscles used. Heart: S1S2, regular rate and rhythm without overt murmur, gallops, or rubs. No JVD. No peripheral edema Abdomen: Soft, nondistended, nontender. Normoactive bowel sounds. Negative for masses or costovertebral tenderness. Skin: Intact, warm, dry. No lesions or rashes noted. Hematologic: No petechiae or purpra. Mucosa appropriate color and normal nail bed color and refill. Extremities: Atraumatic, moves all extremities per self without difficulty or deficits, negative for cords or calf pain. Neurovascular unremarkable. Neuro: Awake, alert, oriented. Cranial nerves II through XII unremarkable. Cerebellum unremarkable. Motor and sensory unremarkable throughout. Exam nonfocal. Psychiatric: Mood and affect are appropriate. Normal thought process. Answering questions appropriately. Notes: *This patient was seen and evaluated during the 2019 SARS-CoV-2 novel coronavirus pandemic period. Community viral transmission is ongoing at time of this encounter and the emergency department is operating under pandemic response procedures. As stated above the patient is a 51-year-old female who presents to the emergency department with complaints of shortness of breath and cough that started 07/11/21. The patient CBC is significant for a white blood cell count of 3.76 and a hemoglobin of 16.2. The patient's chemistry significant for a magnesium of 1.6. The patient C-reactive protein is 11. The patient COVID-19 is positive. The patient was symptoms started approximately 10 days ago she is not meet the time criteria for the monoclonal antibodies. The patient's SPO2 is 94% on room air and has continued to be sent through her entire stay. [facility]. I have talked with the patient about today's findings, in addition to providing specific details for plan of care. Reassessment at the time of disposition demonstrates that the patient is in no acute distress. The patient is stable for discharge, counseling was provided and we discussed in great detail signs and symptoms that would prompt them to return to the Emergency Department. Medication, follow up and supportive care measures were reviewed and discussed. Voices understanding and is agreeable to plan of care. Denies any further questions or concerns at this time. Diagnostics: CBC, CMP, CRP, chest x-ray, influenza/COVID-19 Therapeutics: IV fluids, Toradol, Zofran Prescription: Zofran 4 mg ODT 1 every 8 hours Impression: COVID-19 Plan: 1. Your COVID-19 screening is positive. That means you do have the coronavirus and you are considered contagious. Your vital signs and oxygen saturation are well enough that you were able to monitor your symptoms at home. Continue to monitor for trouble breathing, new confusion or inability to arouse, bluish lips or face or any of the other symptoms we discussed -if this occurs please return to the emergency room. 1a. As you are symptoms were 10 days as of today you are out of the time window for the monoclonal antibodies. I have prescribed you Zofran through our [facility] in the emergency room lobby. I do highly advise you to use the Zofran to enable you to keep your fluids and. If you are unable to keep fluids in or feel short of breath or any of the symptoms that we talked about today in the emergency department please return to the emergency room. 2. Please self quarantine until cleared by [facility]. Inform any persons that you have been in contact with since you started becoming symptomatic that you have tested positive; they should be made aware and take the appropriate steps as needed. 3. You can take NyQuil during the evening to help get a restful night sleep. May alternate Tylenol and ibuprofen as needed for pain and fever management. 4. The [facility] department will be calling you and following up with you. The [place] COVID 19 Hotline phone number , They are open Thursday - Thursday 7am - 7pm. Follow up with your primary care provider for re-evaluation and re-testing after the 10 day quarantine and discuss when you should be seen. Definitive disposition and diagnosis as appropriate pending reevaluation and review of above. - Related Data Allergies Allergy/AdvReac Type Severity Reaction Status Date / Time Dairy Products [Cheese] Allergy Hives Verified 07/20/21 14:49 kiwi Allergy Airway Verified 07/20/21 14:49 Tightness Yeast Allergy Hives Verified 07/20/21 14:49 Home Meds: Home Meds Albuterol [Ventolin HFA] 2 puff INH QID PRN 10/28/18 [History] Levothyroxine [Synthroid] 100 mcg PO DAILY 10/28/18 [History] Sertraline [Zoloft] 75 mg PO DAILY 07/20/21 [History] Past Medical History HEENT History: Reports: None Cardiovascular History: Reports: Hypertension Respiratory History: Reports: None Gastrointestinal History: Reports: None Genitourinary History: Reports: None [employer] History: Reports: Dysfunctional Uterine Bleeding Musculoskeletal History: Reports: None Neurological History: Reports: None Psychiatric History: Reports: Anxiety Endocrine/Metabolic History: Reports: Hypothyroidism Hematologic History: Reports: None Immunologic History: Reports: None Oncologic (Cancer) History: Reports: None Dermatologic History: Reports: None - Infectious Disease History Infectious Disease History: Reports: Chicken Pox - Past Surgical History Head Surgeries/Procedures: Reports: None HEENT Surgical History: Reports: None Cardiovascular Surgical History: Reports: None Respiratory Surgical History: Reports: None GI Surgical History: Reports: None Female Surgical History: Reports: Section, Other (See Below) Other Female Surgeries/Procedures: ablation Endocrine Surgical History: Reports: None Neurological Surgical History: Reports: None Musculoskeletal Surgical History: Reports: None Oncologic Surgical History: Reports: None Dermatological Surgical History: Reports: None Social & Family History - Family History Family Medical History: No Pertinent Family History - Caffeine Use Caffeine Use: Reports: Coffee - Recreational Drug Use Recreational Drug Use: No - Living Situation & Occupation Living situation: Reports: , with Spouse Occupation: Employed ED ROS GENERAL - Review of Systems Review Of Systems: Comprehensive ROS is negative, except as noted in HPI. ED EXAM, GENERAL - Physical Exam Exam: See Below (See dictation) Course - Vital Signs Last Recorded V/S: Last Vital Signs Temp 97.0 F 07/20/21 14:50 Pulse 104 H 07/20/21 14:50 Resp 20 07/20/21 14:50 BP 167/107 H 07/20/21 14:50 Pulse Ox 94 L 07/20/21 14:50 - Orders/Labs/Meds Orders: Active Orders 24 hr Category Date Time Status Saline Lock Insert [OM.PC] Stat Oth 07/20/21 15:08 Ordered Labs: Laboratory Tests 07/20/21 07/20/21 07/20/21 Range/Units 14:55 15:34 15:34 WBC 3.76 L (4.0-11.0) K/uL RBC 5.15 (4.30-5.90) M/uL Hgb 16.2 H (12.0-16.0) g/dL Hct 46.7 H (36.0-46.0) % MCV 90.7 (80.0-98.0) fL MCH 31.5 (27.0-32.0) pg MCHC 34.7 (31.0-37.0) g/dL RDW Std Deviation 41.5 (28.0-62.0) fl RDW Coeff of Dony 13 (11.0-15.0) % Plt Count 107 L (150-400) K/uL MPV 9.40 (7.40-12.00) fL Neut % (Auto) 72.0 (48.0-80.0) % Lymph % (Auto) 21.3 (16.0-40.0) % [place] % (Auto) 6.4 (0.0-15.0) % Eos % (Auto) 0.3 (0.0-7.0) % Baso % (Auto) 0.0 (0.0-1.5) % Neut # (Auto) 2.7 (1.4-5.7) K/uL Lymph # (Auto) 0.8 (0.6-2.4) K/uL [place]eth # (Auto) 0.2 (0.0-0.8) K/uL Eos # (Auto) 0.0 (0.0-0.7) K/uL Baso # (Auto) 0.0 (0.0-0.1) K/uL Nucleated RBC % 0.0 /100WBC Nucleated RBCs # 0 K/uL Sodium 138 (136-145) mmol/L Potassium 3.8 (3.5-5.1) mmol/L Chloride 101 (98-107) mmol/L Carbon Dioxide 27.1 (21.0-32.0) mmol/L BUN 14 (7.0-18.0) mg/dL Creatinine 1.0 (0.6-1.0) mg/dL Est Cr Clr Drug Dosing 58.54 mL/min Estimated GFR (MDRD) 58.0 ml/min Glucose 106 (74-106) mg/dL Calcium 8.7 (8.5-10.1) mg/dL Magnesium 1.6 L (1.8-2.4) mg/dL Total Bilirubin 0.4 (0.2-1.0) mg/dL AST 31 (15-37) IU/L ALT 38 (14-63) IU/L Alkaline Phosphatase 63 (46-116) U/L C-Reactive Protein 4.00 H (0.00-0.90) mg/dL Total Protein 7.1 (6.4-8.2) g/dL Albumin 3.4 (3.4-5.0) g/dL Globulin 3.7 (2.6-4.0) g/dL Albumin/Globulin Ratio 0.9 (0.9-1.6) Influenza Type A RNA Cancelled Influenza Type B RNA Cancelled SARS-CoV-2 RNA (LAVINIA) POSITIVE H (NEGATIVE) Meds: Medications Discontinued Medications Generic Name Dose Route Start Last Admin Trade Name Freq PRN Reason Stop Dose Admin Sodium Chloride 1,000 mls @ 999 mls/hr 07/20/21 15:08 07/20/21 15:40 Normal Saline IV 07/20/21 16:08 999 mls/hr .BOLUS ONE Administration Ketorolac Tromethamine 30 mg 07/20/21 15:08 07/20/21 15:40 Ketorolac 30 Mg/Ml Sdv IVPUSH 07/20/21 15:09 30 mg ONETIME ONE Administration Ondansetron HCl 4 mg 07/20/21 15:08 07/20/21 15:41 Ondansetron 4 Mg/2 Ml Sdv IVPUSH 07/20/21 15:09 4 mg ONETIME ONE Administration Sodium Chloride 10 ml 07/20/21 15:08 07/20/21 15:43 Sodium Chloride 0.9% 10 Ml Syringe FLUSH 10 ml ASDIRECTED PRN Administration Keep Vein Open Sodium Chloride 2.5 ml 07/20/21 15:08 07/20/21 15:43 Sodium Chloride 0.9% 2.5 Ml Syringe FLUSH 2.5 ml ASDIRECTED PRN Administration Keep Vein Open Departure - Departure Time of Disposition: 16:32 Disposition: Home, Self-Care 01 Condition: Good Clinical Impression: COVID-19 - Discharge Information *PRESCRIPTION DRUG MONITORING PROGRAM REVIEWED*: Not Applicable *COPY OF PRESCRIPTION DRUG MONITORING REPORT IN PATIENT DANIELLE: Not Applicable Instructions: COVID-19: Quarantine vs. Isolation - [facility] (07/05/2020), COVID-19: What to Do If You Are Sick- [facility] (10/03/2020) Referrals: PCP,None [Primary Care Provider] - Forms: ED Department Discharge Additional Instructions: The following information is given to patients seen in the emergency department who are being discharged to home. This information is to outline your options for follow-up care. We provide all patients seen in our emergency department with a follow-up referral. The need for follow-up, as well as the timing and circumstances, are variable depending upon the specifics of your emergency department visit. If you don't have a primary care physician on staff, we will provide you with a referral. We always advise you to contact your personal physician following an emergency department visit to inform them of the circumstance of the visit and for follow-up with them and/or the need for any referrals to a consulting specialist. The emergency department will also refer you to a specialist when appropriate. This referral assures that you have the opportunity for follow-up care with a specialist. All of these measure are taken in an effort to provide you with optimal care, which includes your follow-up. Under all circumstances we always encourage you to contact your private physician who remains a resource for coordinating your care. When calling for follow-up care, please make the office aware that this follow-up is from your recent emergency room visit. If for any reason you are refused follow-up, please contact the [facility] Emergency Department at and asked to speak to the emergency department charge nurse. [facility] [address] [place] [address] [place] [address] The patient is a 1-year-old female who presents to the emergency department with complaints of shortness of breath and cough that started 07/11/21. Sepsis Event Note (ED) - Evaluation Sepsis Screening Result: No Definite Risk - Focused Exam Vital Signs: Vital Signs Temp Pulse Resp BP Pulse Ox 07/20/21 14:50 97.0 F 104 H 20 167/107 H 94 L - My Orders Last 24 Hours: My Active Orders 07/20/21 15:08 Saline Lock Insert [OM.PC] Stat - Assessment/Plan Last 24 Hours: My Active Orders 07/20/21 15:08 Saline Lock Insert [OM.PC] Stat
[2021-07-20 16:03] LABS: CARBON DIOXIDE,CO2 27.1 mmol/L (21.0-32.0); POTASSIUM,K 3.8 mmol/L (3.5-5.1)
--- NOTE | 2021-07-20 16:19 | CR ---
HISTORY: Cough and shortness of breath. COVID infection. TECHNIQUE: Portable frontal view the chest. COMPARISON: Chest x-ray 11/02/2018. FINDINGS: No airspace consolidation. No pleural effusion or pneumothorax. Pulmonary vasculature and cardiomediastinal silhouette are within normal limits. IMPRESSION: No cardiopulmonary abnormality. Dictated by Suresh Alejandro MD @ 07/20/2021 4:17:01 PM (Electronically Signed)
== END 2021-07-20 17:13 | disposition home or self-care (01) ==
LOC: MW.ED 14:45
DX: U07.1 COVID-19 (principal); I10 Essential (primary) hypertension; E03.9 Hypothyroidism, unspecified; Z79.899 Other long term (current) drug therapy; Z91.018 Allergy to other foods; Z91.011 Allergy to milk products; Z91.048 Other nonmedicinal substance allergy status
CPT/HCPCS: 36415; 71045; 80053; 83735; 85025; 86140; 87635; 87804; 93005; 96374; 96375; 99285; J1885; J2405; J7030; U0002